=== PATIENT | female | born 2000 | race Caucasian/White ===

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

== ENCOUNTER → 2022-05-30 | Outpatient (CLI) | payer BC ==
[2022-05-30 17:24] LABS: HEMATOCRIT 39.5 % (36.0-47.0); HEMOGLOBIN 12.9 g/dl (12.0-15.5)
[2022-05-30 19:36] LABS: SICKLE CELL SCREEN NEGATIVE (NEGATIVE)
== END ==
LOC: M LAB 16:23
PROVIDERS: ATTEND Orthopaedic Surgery
DX: Z02.0 Encounter for examination for admission to educational institution (principal)